=== PATIENT | male | born 1940 | race Caucasian/White ===

== ENCOUNTER → 2018-01-15 14:37 | Outpatient (CLI) | payer MEDICARE, SELFPAY | DX: Z23 Encounter for immunization (principal) | CPT/HCPCS: 90471; 90662 ==

== ENCOUNTER → 2019-01-22 15:06 | Outpatient (CLI) | payer MEDICARE, SELFPAY | DX: Z23 Encounter for immunization (principal) | CPT/HCPCS: 90471; 90662 ==

== ENCOUNTER → 2020-01-13 | Outpatient (CLI) | payer MEDICARE, OTHER, SELFPAY | PROVIDERS: Referring Provider Internal Medicine; Visit Provider Internal Medicine | DX: Z23 Encounter for immunization (principal) | CPT/HCPCS: 90471; 90662 ==

== ENCOUNTER → 2020-05-22 16:15 | Outpatient (CLI) | payer MEDICARE, OTHER, SELFPAY ==
[2020-05-22] MEDS: COVID-19 VACC, Ad26(JANSSEN)/PF 0.5 ML IM (16:24)
== END ==
PROVIDERS: Visit Provider Internal Medicine
DX: Z23 Encounter for immunization (principal)
CPT/HCPCS: 0031A; 91303

== ENCOUNTER → 2021-06-01 09:00 | Outpatient (CLI) | payer MEDICARE, SELFPAY | PROVIDERS: Referring Provider Internal Medicine; Visit Provider Internal Medicine | DX: Z23 Encounter for immunization (principal) | CPT/HCPCS: 90471; 90662 ==

== ENCOUNTER → 2022-01-21 19:02 | Outpatient (CLI) | payer MEDICARE, SELFPAY | PROVIDERS: Referring Provider Internal Medicine; Visit Provider Internal Medicine | DX: Z23 Encounter for immunization (principal) | CPT/HCPCS: 90471; 90662 ==

== ENCOUNTER 2022-03-30 09:56 | Emergency (ER) | payer MEDICARE, OTHER, SELFPAY ==
[2022-03-30 10:04] VITALS: BP 194/91; PULSE 87; RESP 16; TEMP 36.4; O2SAT 98; BMI 22.8
--- NOTE | 2022-03-30 10:09 | DI.RAD.S_ITS ---
PROCEDURE: XR RIBS LT MIN 3V W CXR1V INDICATIONS: fall onto L side ribs TECHNIQUE: 2 views of the left ribs were acquired, along with a single view chest. COMPARISON: None. FINDINGS: Surgical changes and devices: None. Bones and chest wall: No fractures or dislocations. No suspicious bony lesions. Overlying soft tissues appear unremarkable. Lungs and pleura: No pleural effusions or pneumothorax. Lungs appear clear. Mediastinum: Mediastinal contours appear normal. Moderate cardiomegaly, with a shape suggesting possible pericardial effusion. Percutaneous aortic valve. Generator device overlies the heart. IMPRESSION: 1. No evidence of displaced left rib fracture. 2. No evidence acute pulmonary process. 3. Cardiomegaly, question pericardial effusion. Comment: CT chest may be helpful to determine the presence or absence of a pericardial effusion. Dictated by: Art Ospina M.D. on 03/30/2022 at 10:55 Approved by: Art Ospina M.D. on 03/30/2022 at 10:57
--- NOTE | 2022-03-30 10:21 | ED.FALL ---
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 He states that he tripped over something landed on his left ribs. He did not hit his head he did not lose consciousness he is no nausea vomiting numbness tingling or weakness. It hurts every time he moves or breathes on some left ribs. Related Data Home Medications Medication Instructions Recorded Confirmed atorvastatin PO 03/30/22 03/30/22 carvedilol PO 03/30/22 03/30/22 warfarin PO 03/30/22 03/30/22 Allergies Allergy/AdvReac Type Severity Reaction Status Date / Time No Known Drug Allergies Allergy Unverified 03/30/22 09:31 Review of Systems Review of Systems ROS Unobtainable: All systems reviewed & are unremarkable except as noted in HPI and below Patient History Social History Smoking Status: Never smoker Smoking Status: Never smoker Exam Initial Vital Signs Initial Vital Signs: Vital Signs Temperature 97.6 F 03/30/22 10:04 Pulse Rate 87 03/30/22 10:04 Respiratory Rate 16 03/30/22 10:04 Blood Pressure 194/91 H 03/30/22 10:04 Pulse Oximetry 98 03/30/22 10:04 Oxygen Delivery Method 03/30/22 10:04 GENERAL: Alert pleasant 82-year-old male and in no acute distress. HEENT: Head atraumatic,EOMI, pupils reactive, face symmetric, moist mucous membranes, no neck pain or tenderness CARDIOVASCULAR: Regular rate and rhythm without murmurs, rubs or gallops. RESPIRATORY: Breath sounds equal bilaterally, no wheezes rales or rhonchi. ABDOMEN: Soft, nontender. Normoactive bowel sounds all 4 quadrants. No guarding or rebound.s EXTREMITIES: Normal range of motion, no clubbing or edema. Neurovascularly intact NEUROLOGICAL: Alert and oriented x4.Normal gait and speech. Global [employer] strength equal bilaterally SKIN: Warm, dry, no laceration, no petechiae, no rashes or lesions. Scores GCS [place] coma scale eye opening: Spontaneous [place] coma scale verbal response: Orientated [place] coma scale motor response: Obey commands [place] coma scale total score: 15 Course Orders Ordered: ED Orders 03/30/22 10:09 XR ribs LT min 3V w CXR1V Stat Vital Signs Vital signs: Vital Signs - 8 hr 03/30/22 10:04 03/30/22 11:30 Temperature 97.6 F Pulse Rate 87 60 Respiratory Rate 16 Blood Pressure 194/91 H 151/67 H Pulse Oximetry 98 97 Oxygen Delivery Method Room Air Room Air MDM - Fall Imaging Data Chest x-ray: Radiologist's Impression: No evidence of displaced left rib Fracture no evidence of acute pulmonary process Cardiomegaly questionable pericardial effusion CT chest may be helpful to determine presence or absence of pericardial effusion MDM Narrative Medical decision making narrative: Patient 82-year-old male anticoagulated on warfarin secondary to aortic valve presents today after ground level fall last night. Complaining of left rib pain. No evidence of head injury no sign or symptom of head injury no need for head CT. Chest x-ray does not show any pneumothorax or rib fracture. Possible pericardial effusion. I did a bedside ultrasound which is not show any pericardial effusion. Patient is offered pain medication however he would like to only take Tylenol at home. MDM * differential diagnosis includes but not limited to: Pneumothorax rib fracture rib contusion pericardial effusion * Prior records reviewed: Walk-in clinic evaluation * My lab interpretation: None * My imaging interpretation: X-ray no fracture * Clinical Decision Rules/Scores evaluated: None * Independent discussions with: None * Social Considerations: None * Shared Decision Making: With patient *Disposition: see below, along with detailed discharge instructions that have been reviewed with patient as well as indications for ED re-evaluation and additional outpatient follow up Discharge Plan Departure Patient Disposition: Home Clinical Impression: Contusion of rib Instructions: DI for Rib Contusion Activity Restrictions/Additional Instructions: *You have been diagnosed with rib contusion *What to do: At this time pain medication only. No evidence of fractured rib however still possible. Support with pillow or blanket. Use incentive spirometer 5-10 times every hour while awake to help prevent pneumonia for about a week or until pain has improved *Continue to take medications as directed Tylenol 1000 mg every 6 hours if needed for [id number] *Follow up with your primary care provider in 2-3 days or call [phone] *Return to ER if you should have increasing pain shortness of breath difficulty breathing or any new, worsening or concerning symptoms Prescriptions: No Action warfarin PO atorvastatin PO carvedilol PO Referrals: Rohan Staley MD [Primary Care Provider] - Stand Alone Forms: Patient Portal/API
[2022-03-30 11:30] VITALS: BP 151/67; PULSE 60; O2SAT 97
== END 2022-03-30 11:35 | disposition home or self-care (01) ==
PROVIDERS: Emergency Provider Emergency Medicine; PCP Family Medicine
DX: S20.212A Contusion of left front wall of thorax, initial encounter (principal); W01.0XXA Fall on same level from slipping, tripping and stumbling without subsequent striking against object, initial encounter; Z95.5 Presence of coronary angioplasty implant and graft; Z79.01 Long term (current) use of anticoagulants
CPT/HCPCS: 71101; 99283